=== PATIENT | female | born 1975 | race Caucasian/White ===

== ENCOUNTER → 2016-12-15 | Outpatient (CLI) | payer OTHER, BC ==
[2016-12-15 16:08] LABS: Basophils % (A) 1 %; CH 28.5; CHCM 31.2; Eosinophils % (A) 1 %; HCT 40.3 % (34.0-46.0); HDW 2.36; HGB 12.4 gm/dL (11.4-16.0); Hypochromasia Slight; Luc # (Auto) 0.13; Luc % (Auto) 2; Lymphocytes # (A) 2.4 k/uL (1.0-4.8); Lymphocytes % (A) 30 %; MCH 28.2 pg (25.0-35.0); MCHC 30.7 g/dL (31.0-37.0); MCV 91.7 fL (80.0-100.0); Mean Platelet Volume 6.6; Monocytes # (A) 0.4 k/uL (0-1.0); Monocytes % (A) 6 %; Neutrophils # (A) 4.9 k/uL (1.3-7.7); Neutrophils % (A) 61 %; RBC 4.39 m/uL (3.80-5.40); RDW 13.1 % (11.5-15.5); WBC (Perox) 8.11
[2016-12-15 16:28] LABS: Anion Gap 10 mmol/L; Blood Urea Nitrogen 14 mg/dL (7-17); Calcium 9.3 mg/dL (8.4-10.2); Carbon Dioxide 28 mmol/L (22-30); Chloride 102 mmol/L (98-107); Glucose 98 mg/dL (74-99); Non-African American GFR(MDRD) >60 (>60 ml/min/1.73 sqM); Potassium 4.7 mmol/L (3.5-5.1); Sodium 140 mmol/L (137-145)
== END | disposition home or self-care (01) ==
LOC: LABPAT 15:35
PROVIDERS: ATTEND Obstetrics & Gynecology
DX: Z01.812 Encounter for preprocedural laboratory examination (principal)
CPT/HCPCS: 80048; 85025

== ENCOUNTER 2016-12-24 05:53 | Day surgery (SDC) | payer OTHER, BC ==
[2016-12-11 13:08] VITALS: BMI 26.4
--- NOTE | 2016-12-23 16:59 | P.HPOB ---
History of Present Illness H&P Date: 12/23/16 Chief Complaint: Menometrorrhagia Alyssa is a 41-year-old female who has heavy irregular vaginal bleeding. Symptoms have been going on for a number of months and they are not getting any better. We have past discussed options including medication versus surgical options to control her bleeding she will however would like definitive treatment and is therefore scheduled for a robotic-assisted laparoscopic hysterectomy possible OSCAR/BSO. Risks, benefits, alternatives to this procedure were discussed with the patient in detail including but not limited to damage to bladder/bowel/ureters/bleeding/infection and all questions were answered for her prior to proceeding to the operating room. She has had in the past a D&C with hysteroscopy with normal tissue sample. Past Medical History Past Medical History: GERD/Reflux Additional Past Medical History / Comment(s): heavy and freq periods,current tx of sinusitis,chronic back pain-degenerative disc disease,asthma as a teenager, current medrol dose pack History of Any Multi-Drug Resistant Organisms: None Reported Past Surgical History: Tonsillectomy, Tubal Ligation Additional Past Surgical History / Comment(s): lump removed base of tongue- benign Past Anesthesia/Blood Transfusion Reactions: No Reported Reaction Additional Past Anesthesia/Blood Transfusion Reaction / Comment(s): no blood transfusion hx Past Psychological History: No Psychological Hx Reported Smoking Status: Former smoker Past Alcohol Use History: Rare Additional Past Alcohol Use History / Comment(s): quit smoking 2014,smoked approx 20yrs 1-1 1/2 ppd - Past Family History Father Family Medical History: COPD, Hypertension Mother Family Medical History: Cancer Medications and Allergies Home Medications Medication Instructions Recorded Confirmed Type Acetaminophen [Tylenol] 2 tab PO Q4-6H PRN 05/01/15 12/11/16 History Gabapentin [Neurontin] 300 mg PO BID 12/11/16 12/11/16 History methylPREDNISolone [Medrol Dose 4 mg PO DIRECTED 12/11/16 12/11/16 History Pack] Allergies Allergy/AdvReac Type Severity Reaction Status Date / Time Penicillins Allergy Rash/Hives Verified 12/11/16 12:52 codeine AdvReac Nausea & Verified 12/11/16 12:52 Vomiting CHILD sulfamethoxazole AdvReac Nausea & Verified 12/11/16 14:36 [From Bactrim] Vomiting trimethoprim [From Bactrim] AdvReac Nausea & Verified 12/11/16 14:36 Vomiting Exam Osteopathic Statement: *. No significant issues noted on an osteopathic structural exam other than those noted in the History and Physical/Consult. - OBG Physical Exam Breast: both: normal (no masses) Abdomen: bowel sounds normal, no diffuse tenderness, no bruit present, no guarding noted, no hepatomegaly, no splenomegaly, no mass Vulva: both: normal Vagina: normal moisture, no discharge Cervix: no lesion, no discharge Uterus: normal size, normal contour Adnexa: both: normal Anus/Rectum: normal perianal skin, no rectal mass, no hemorrhoids, heme negative
[~2016-12-24 05:53] MED LIST: CLINDAMYCIN 900 MG in DEXTROSE 5% IN WATER 50 ML IVPB ONE; DEXAMETHASONE SOD PHOSPHATE 10 MG/ML 1 ML VIAL IV ONE; MIDAZOLAM 2 MG/2 ML VIAL IV PRN; ONDANSETRON 4 MG/2 ML VIAL IVP ONE
[2016-12-24] MEDS ORDERED: LIDOCAINE 1% 20 ML VIAL (10MG/ML) FOR IV START SQ ONE (06:24)
[2016-12-24] MEDS: LACTATED RINGERS 1,000 ML IV SCH ×3 (06:25→15:23)
[2016-12-24 06:38] LABS: Glucose,Whole Blood 100 mg/dL (75-99)
[2016-12-24] MEDS ORDERED: LIDOCAINE 1% INJ 10MG/ML (20 ML MDV) ONE (07:29)
[2016-12-24] MEDS ORDERED: NEOSTIGMINE 1 MG/ML 10 ML VIAL ONE (07:29)
[2016-12-24] MEDS ORDERED: SUCCINYLCHOLINE CHLORIDE 100 MG/5 ML SYR IV ONE (07:29)
[2016-12-24] MEDS ORDERED: fentaNYL (PF) 50 MCG/ML 2 ML AMP ONE (07:29)
[2016-12-24] MEDS ORDERED: MIDAZOLAM 2 MG/2 ML VIAL ONE (07:29)
[2016-12-24] MEDS ORDERED: ROCURONIUM BROMIDE 10 MG/ML 10 ML VIAL IV ONE (07:29)
[2016-12-24] MEDS ORDERED: PROPOFOL 10 MG/ML 20 ML VIAL IV ONE (07:29)
[2016-12-24] MEDS ORDERED: HYDROmorphone (PF) 1 MG/ML ONE (07:29)
[2016-12-24] MEDS ORDERED: GLYCOPYRROLATE 0.2 MG/ML 2 ML VIAL ONE (07:29)
[2016-12-24] MEDS ORDERED: BUPIVACAINE (PF) 0.25% 30 ML VIAL SQ ONE (07:55)
[2016-12-24] MEDS ORDERED: SIMETHICONE 80 MG CHEWABLE PO PRN (08:37)
[2016-12-24] MEDS ORDERED: diphenhydrAMINE 50 MG/ML 1 ML VIAL IVP PRN (08:37)
[2016-12-24] MEDS ORDERED: ONDANSETRON 4 MG/2 ML VIAL IVP PRN (08:37)
--- NOTE | 2016-12-24 08:47 | P.OP ---
Date of Procedure: 12/24/16 Preoperative Diagnosis: Metromenorrhagia Postoperative Diagnosis: Same Procedure(s) Performed: Robotic-assisted laparoscopic hysterectomy Anesthesia: DARLING Surgeon: Blake Leonardo Conical Mixer #1: Zahra Kelley Estimated Blood Loss (ml): 15 IV fluids (ml): 700 Urine output (ml): 100 Pathology: other (Uterus and cervix) Condition: stable Disposition: floor Operative Findings: Normal uterus fallopian tubes and ovaries. Incisional finding of filmy adhesions of the colon to the intra-abdominal wall. However these were not precluding my surgery visualization therefore they were left in situ due to risk of thermal burn to the bowel went was not necessary Description of Procedure: Patient was taken to the operating suite where a general anesthetic was found to be adequate. She was prepped and draped in the normal sterile fashion and placed in the dorsal lithotomy position. Initially a weighted speculum was inserted the vagina into lip cervix identified and grasped single-toothed tenaculum and cervix was then dilated and using 2 stitches at 3-9/10 clock position to assist in removal of uterus a Raquel manipulator with an 8 cm tip and a force centimeter cup was used. Full cath was then placed and gloves were changed and attention was turned to abdominal portion procedure. Patient had 2 mL of quarter percent Marcaine was then injected periumbilically and through this injected anesthetic a 5 mm skin incision was made. Through this incision under direct visualization with an optical trocar and sleeve the camera was inserted. Once peritoneal placement was assured gas was left fully insufflate the abdomen and observations pelvis were made. Long adhesion of the bowel was noted this was the ascending colon there was attached to the anterior abdominal wall midway between the umbilicus and the uterus. The initial part was filmy but was definitely part of the bowel and then there was a thicker area further off to the right-hand side. As we are able place the ports around this and it was not precluding visualization of the surgery it was left alone. 2 lateral ports were then placed approximately 10 cm from the umbilicus through 8 mm skin incisions. A fourth port and sleeve was then inserted through a 1 cm incision between the left lateral and the medial port. Left scopic port was then replaced with a da Augustus port for the camera and laparoscopic equipment was removed from the field. Robot was then brought in and docked using a scissor and the one arm and a [place] grasper in the 2 arm. At this point I did break scrub and go to the console. Patient had been placed in a very steep Trendelenburg position just prior to robot docking. First the left utero- ovarian ligament was identified cauterized and cut followed by the broad ligament tissues fallopian tube tissues. This was dissected down to the level the round ligament which was then also cauterized and transected. Skeletonization of the vascularity on the left-hand side was then done dissecting down as far as possible. Left vascular was then identified and cauterized. Undermining the bladder flap was then done by using [place] grasped undermining the tissues and using the scissor to incise across. This tissue was completed across the face of the uterus and the bladder was bluntly dissected out of the operative field. Once this was fully accomplished right side of the uterus was developed in the same fashion and right vascular was cauterized. Once this was accomplished balloon was blown up on the Raquel manipulator and an anterior colpotomy was made. Following the blue couple around in a counterclockwise fashion we are able to cheating head when needed to obtain excellent hemostasis throughout the procedure. We did follow the couple all the way around incising with Metzenbaums. Once 3 and 60 was completed uterus is brought into the vagina to maintain pneumoperitoneum and area was irrigated and hemostasis was verified. Once this was accomplished incidents were exchanged for a cardia grasper and a make suture cut and using a to OB lock suture the vaginal cuff was closed in a running fashion. Once closed pelvis was again suction irrigated seeing no bleeding incidents removed and gas allowed to expel from the abdomen. 5 deep breaths were provided during this process and then the instruments were removed and Dr. Kelley close incision subcuticularly. While she was doing this I did do a cystoscopy and good flow was noted from both ureteral jets. Once completed incidents removed sponge, lap, needle counts were all correct 2 Torres catheter was replaced and patient was taken to the recovery room in stable and satisfactory condition.
[2016-12-24] MEDS: KETOROLAC 30 MG/ML 1 ML VIAL IVP PRN ×3 (08:58→21:02)
[2016-12-24] MEDS: HYDROmorphone 1 MG/ML 1 ML SYRINGE IVP PRN ×4 (09:00→09:23)
[2016-12-24] MEDS ORDERED: traMADol 50 MG TAB PO PRN (13:50)
[2016-12-24] MEDS ORDERED: ACETAMINOPHEN IV (For NPO) 1,000 MG in EMPTY BAG 1 BAG IVPB PRN (17:00)
[2016-12-24] MEDS: SENNOSIDES-DOCUSATE SODIUM 1 EACH TAB PO SCH (20:49)
[2016-12-25] MEDS: LACTATED RINGERS 1,000 ML IV SCH (00:04)
[2016-12-25 01:07] VITALS: RESP 16
[2016-12-25] MEDS: KETOROLAC 30 MG/ML 1 ML VIAL IVP PRN ×2 (06:00→12:17)
[2016-12-25 08:58] VITALS: BP 117/71; PULSE 81; TEMP 97.8
--- NOTE | 2016-12-25 12:27 | P.DS ---
Providers Expected date of discharge: 12/25/16 Attending physician: Blake Leonardo Primary care physician: Stated None Hospital Course: Marck doing very well postop day 1. She is ambulating, voiding and she is tolerating diet. Last night she did have some nausea but that seems to resolve once stopping Ultram. She'll prevent be provided with a prescription for Motrin 600. No other narcotic pain relievers are required for her right now and she has very bad reaction to them so we'll try and get away with Motrin and just Tylenol. Her vital signs are otherwise stable and she is afebrile. Heart regular, lungs clear, extremities without pain. Incisions are clean dry and intact. Assessment postop day 1. Plan discharged home follow up with me in 1 week. All questions are answered for her prior to her discharge and she is stable for discharge at this time. Patient Condition at Discharge: Good Plan - Discharge Summary New Discharge Prescriptions: Ibuprofen [Motrin] 600 mg PO Q6HR PRN #30 tab PRN Reason: Pain Discharge Medication List Acetaminophen [Tylenol] 2 tab PO Q4-6H PRN 05/01/15 [History] Ibuprofen [Motrin] 600 mg PO Q6HR PRN #60 tab 05/02/15 [Rx] Gabapentin [Neurontin] 300 mg PO BID 12/11/16 [History] methylPREDNISolone [Medrol Dose Pack] 4 mg PO DIRECTED 12/11/16 [History] Ibuprofen [Motrin] 600 mg PO Q6HR PRN #30 tab 12/25/16 [Rx] Follow up Appointment(s)/Referral(s): Blake Leonardo DO [Doctor of Osteopathic Medicine] - 1 Week Patient Instructions/Handouts: Laparoscopic Hysterectomy (GEN) Activity/Diet/Wound Care/Special Instructions: No heavy lifting, limit stairs and driving and pelvic rest. If any high temperatures, heavy bleeding, or severe pain call my office Discharge Disposition: HOME SELF-CARE
[2016-12-25] MEDS: SENNOSIDES-DOCUSATE SODIUM 1 EACH TAB PO SCH (12:38)
== END 2016-12-25 13:08 | disposition home or self-care (01) ==
LOC: OR 05:53 → 6PED 08:51 → OR 12-25 13:08
PROVIDERS: ATTEND Obstetrics & Gynecology
DX: N84.1 Polyp of cervix uteri (principal); N92.0 Excessive and frequent menstruation with regular cycle; N92.1 Excessive and frequent menstruation with irregular cycle; N92.6 Irregular menstruation, unspecified; J32.9 Chronic sinusitis, unspecified; Z87.891 Personal history of nicotine dependence; M54.9 Dorsalgia, unspecified; Z79.899 Other long term (current) drug therapy; Z88.5 Allergy status to narcotic agent; Z88.0 Allergy status to penicillin; Z88.2 Allergy status to sulfonamides
CPT/HCPCS: 94760; 81025; 86900; 86901; 86850; 88307; 58550; J2250; J1100; J2710; J2405; J2001; J3010; J1885 ×2; J1170; J0131; J0330; J2704

== ENCOUNTER → 2020-07-19 | Outpatient (CLI) | payer BC ==
[2020-07-19 11:24] LABS: Basophils % (A) 0 %; Eosinophils # (A) 0.1 k/uL (0-0.7); Eosinophils % (A) 1 %; HCT 47.6 % (34.0-46.0); HGB 15.1 gm/dL (11.4-16.0); Lymphocytes # (A) 1.3 k/uL (1.0-4.8); Lymphocytes % (A) 21 %; MCH 31.2 pg (25.0-35.0); MCHC 31.7 g/dL (31.0-37.0); MCV 98.6 fL (80.0-100.0); Mean Platelet Volume 7.2; Monocytes # (A) 0.4 k/uL (0-1.0); Monocytes % (A) 6 %; Neutrophils # (A) 4.3 k/uL (1.3-7.7); Neutrophils % (A) 70 %; Platelet Count 305 k/uL (150-450); RBC 4.83 m/uL (3.80-5.40); RDW 11.8 % (11.5-15.5); WBC 6.2 k/uL (3.8-10.6)
[2020-07-19 16:54] LABS: Erythrocyte Sedimentation Rate 9 mm/Hr (0-20)
== END | disposition home or self-care (01) ==
LOC: LABWHC1 09:26
PROVIDERS: ATTEND Physical Medicine & Rehabilitation
DX: M54.5 Low back pain (principal); M51.36 Other intervertebral disc degeneration, lumbar region; M79.10 Myalgia, unspecified site; M35.7 Hypermobility syndrome
CPT/HCPCS: 36415; 85025; 85652; 86140